=== PATIENT | male | born 1985 | race Hispanic/Latino ===

== ENCOUNTER 2018-10-16 08:59 | Outpatient (CLI) | payer SELFPAY ==
--- NOTE | 2018-10-16 10:26 | RAD ---
Exam: 2 views right femur HISTORY: Pain. FINDINGS: No fracture. No cortical irregularity or periosteal. IMPRESSION: No fracture.
== END 2018-10-16 09:00 | disposition home or self-care (01) ==
LOC: BICRAD 08:59
PROVIDERS: ATTEND Physician Assistant Medical
DX: M79.604 Pain in right leg (principal)

== ENCOUNTER 2025-01-31 14:10 | Outpatient (CLI) | payer OTHER | END 2025-01-31 14:11 | disposition home or self-care (01) | LOC: BICRAD 14:10 | PROVIDERS: ATTEND Family Medicine | DX: M79.672 Pain in left foot (principal) ==